=== PATIENT | female | born 1955 | race Caucasian/White ===

== ENCOUNTER 2017-06-23 04:51 | Inpatient (IN) | payer OTHER, BC ==
[2017-05-25 12:40] VITALS: BMI 40.0
--- NOTE | 2017-05-25 13:14 | PAT Medication Instructions ---
Service Date May 25, 2017. Current Home Medication List Atenolol (Atenolol), 25 MG PO BID Ergocalciferol (Vitamin D 18435 Unit), 50,000 UNIT PO SUN, WED Hydrocodone/Acetaminophen 5MG/325MG ([place] 5MG/325MG), 1 TABLET PO TID PRN for Pain Levothyroxine Sodium (Levothyroxine Sodium), 1 TAB PO QAM Multivitamin (Multivitamin), 1 TAB PO QAM Prednisone (Prednisone), 5 MG PO UD Medication Instructions For Your Scheduled Surgery - Contact your attendant children's institution for instructions for: Prednisone (Prednisone), 5 MG PO UD - Hold the following medications the morning of surgery: Multivitamin (Multivitamin), 1 TAB PO QAM Ergocalciferol (Vitamin D 50864 Unit), 50,000 UNIT PO SUN, WED - Take the following medications the morning of surgery with a sip of water: Atenolol (Atenolol), 25 MG PO BID Levothyroxine Sodium (Levothyroxine Sodium), 1 TAB PO QAM Hydrocodone/Acetaminophen 5MG/325MG ([place] 5MG/325MG), 1 TABLET PO TID PRN for Pain (if needed, can be taken up to four hours before surgery) - Take the following medications as scheduled the night before surgery: Atenolol (Atenolol), 25 MG PO BID Hydrocodone/Acetaminophen 5MG/325MG ([place] 5MG/325MG), 1 TABLET PO TID PRN for Pain (if needed) If you have any questions please call us at [phone] or [phone] or [phone]
--- NOTE | 2017-05-25 14:04 | DIAGNOSTIC IMAGING REPORT ---
CHEST 2 VIEWS ROUTINE HISTORY: 61 years-old Female pat preoperative exam. No acute chest complaints. COMPARISON: Portable chest radiograph 12/13/2014 TECHNIQUE: PA and lateral views of the chest FINDINGS: Cardiac silhouette is mildly enlarged, unchanged. No pneumothorax, pleural effusion, focal airspace consolidation or overt pulmonary edema. Degenerative changes are seen within the spine and shoulders. Fusion hardware of the lower cervical spine is noted. Cholecystectomy clips are seen. IMPRESSION: No acute cardiopulmonary process. The above report was generated using voice recognition software. It may contain grammatical, syntax or spelling errors. Electronically signed by: Anup Underwood M.D. 05/25/2017 2:03 PM Dictated Date/Time: 05/25/2017 2:02 PM
--- NOTE | 2017-05-25 14:12 | DIAGNOSTIC IMAGING REPORT ---
CERVICAL SPINE 3 VIEWS CLINICAL HISTORY: Preoperative examination. Rheumatoid arthritis. FINDINGS: Neutral, flexion, and extension lateral views of the cervical spine are obtained. No prior studies are available for comparison at the time of dictation. The skeletal structures are osteopenic. There is no radiographic evidence of fracture or subluxation on these lateral images. Vertebral body height and alignment are maintained throughout the cervical spine. No inducible bony subluxation is seen on the flexion/extension views. There are postoperative changes from anterior fusion seen at C5-C7. There is near complete bony incorporation at these levels. The atlantodental articulation appears maintained noting mild productive change. The spinolaminar line is preserved. The spinous processes appear intact. Only mild disc space narrowing is seen from C2 -C3 through C4 -C5. The prevertebral soft tissues are within normal limits. IMPRESSION: 1. No acute bony abnormality is seen involving the cervical spine on these lateral views. 2. No inducible bony subluxation is identified on the flexion/extension views. 3. Postoperative change as above. Dictated: 05/25/2017 2:03 PM Transcribed: 05/25/2017 2:12 PM [facility] Electronically signed by: Lázaro Erickson M.D. 05/25/2017 2:17 PM Dictated Date/Time: 05/25/2017 2:03 PM
[2017-05-25 14:32] LABS: BASO % 0.3 %; BASO ABS # 0.06 K/uL (0-0.2); EOS % 3.3 %; EOS ABS # 0.57 K/uL (0-0.5); HEMATOCRIT 40.8 % (37-47); HEMOGLOBIN 13.5 g/dL (12.0-16.0); IG# 0.17 K/uL (0.00-0.02); LYMPH % 19.9 %; LYMPH ABS # 3.48 K/uL (1.2-3.4); MEAN CELL VOLUME 88.1 fL (80-100); MEAN CORPUSCULAR HEMOGLOBIN 29.2 pg (25-34); MEAN CORPUSCULAR HGB CONC 33.1 g/dl (32-36); MEAN PLATELET VOLUME 9.9 fL (7.4-10.4); MONO % 7.2 %; MONO ABS # 1.27 K/uL (0.11-0.59); NEUT % 68.3 %; NEUT ABS # 11.97 K/uL (1.4-6.5); PLATELET COUNT 343 K/uL (130-400); RED CELL DISTRIBUTION WIDTH CV 14.8 % (11.5-14.5); RED CELL DISTRIBUTION WIDTH SD 47.5 fL (36.4-46.3); WHITE BLOOD COUNT 17.52 K/uL (4.8-10.8)
[2017-05-25 14:41] LABS: PTT PATIENT 28.5 SECONDS (21.0-31.0)
[2017-05-25 14:52] LABS: ALBUMIN 3.3 gm/dl (3.4-5.0); CALCIUM 8.8 mg/dl (8.5-10.1); CREATININE 0.72 mg/dl (0.60-1.20); POTASSIUM 3.9 mmol/L (3.5-5.1)
[2017-05-26 06:42] LABS: HEMOGLOBIN A1C 6.6 % (4.5-5.6)
--- NOTE | 2017-06-22 12:29 | HISTORY & PHYSICAL EXAMINATION ---
DATE OF ADMISSION: 06/23/2017 ADMISSION HISTORY AND PHYSICAL CHIEF COMPLAINT: Chronic left knee pain. HISTORY OF PRESENT ILLNESS: This is a 61-year-old female patient of Dr. Guerra'frances complaining of chronic left knee pain, longstanding, now progressively getting worse. The patient has been diagnosed with end-stage osteoarthritis per clinical and radiographic exams. The patient has failed conservative treatment including narcotic medications, anti-inflammatories and intraarticular injections. The patient has increased pain with weightbearing activities and her pain does interfere with her activities of daily living. PAST MEDICAL HISTORY: Hypertension, hypothyroidism, osteoarthritis, and obesity. SOCIAL HISTORY: Nonsmoker, nondrinker. PAST SURGICAL HISTORY: Cervical neck surgery, right foot surgery, cholecystectomy, right total knee replacement, hysterectomy, left ear surgery, appendectomy, colonoscopy and right-sided thyroid surgery. FAMILY HISTORY: Noncontributory. REVIEW OF SYSTEMS: The patient complains of chronic left knee pain and instability. Otherwise denies any shortness of breath, chest pain, nausea, vomiting or other joint complaints. MEDICATIONS: 1. Levothyroxine 125 mcg daily. 2. Vitamin D 50,000 international units twice a week. 3. Atenolol 25 mg b.i.d. 4. Busy as needed. 5. Prednisone 5 mg daily as needed. ALLERGIES: INCLUDE PENICILLIN AND MOBIC, AND SULFA. PHYSICAL EXAMINATION: GENERAL: Well-developed, well-nourished 61-year-old female in no acute distress. She is alert and oriented x3 and pleasant. HEENT: Normocephalic, atraumatic. Extraocular motions are intact. Pupils are equal and reactive to light. HEART: Regular rate and rhythm, no murmurs appreciated. LUNGS: Clear. ABDOMEN: Soft, nontender, bowel sounds present. EXTREMITIES: Left knee reveals a varus deformity. She has limited range of motion of 0-120 degrees. She has medial joint line tenderness. NEUROLOGIC: Neurovascularly, she is intact in her left lower extremity with 4/5 strength. DIAGNOSES: Left knee end-stage osteoarthritis, hypertension, hypothyroidism, osteoarthritis, and obesity. PLAN: The patient was advised of her diagnosis. Indications, risks, benefits, postop course have all been reviewed. The patient wishes to proceed with a left total knee arthroplasty. Necessary consent forms, preoperative testing and clearances will be obtained.
[2017-06-23] VITALS (9 sets, daily range): BP systolic 105–164; BP diastolic 62–84; PULSE 67–99; TEMP 36.5–36.6; O2SAT 94–97; Ht 162.6 cm; Wt 105.1 kg
[~2017-06-23] VITALS: Ht 162.6 cm; Wt 105.1 kg
[~2017-06-23 04:51] MED LIST: ERGO500037 PO; HYDR-5688 PO; LEVO125T5 PO; MULT-506 PO; PRED-301 PO; TNR25X PO
[2017-06-23] MEDS ORDERED: DEXAMETHASONE 4 MG TAB PO SCH (06:00)
[2017-06-23] MEDS ORDERED: LACTATED RINGER'S 1000ML 1,000 ML IV SCH (06:00)
[2017-06-23] MEDS ORDERED: ROPIVACAINE 5MG/ML 30 ML 150 MG, BUPIVACAINE 0.5% MPF INJ 30 ML, EpINEphrine HCL INJ 0.... INFIL SCH ×8 (06:00)
[2017-06-23] MEDS ORDERED: ACETAMINOPHEN 500 MG TAB PO SCH (06:00)
[2017-06-23] MEDS ORDERED: LACTATED RINGER'S 1000ML IV SCH (06:00)
[2017-06-23] MEDS ORDERED: GABAPENTIN 300 MG CAP PO SCH (06:00)
[2017-06-23] MEDS ORDERED: METOCLOPRAMIDE HCL 10 MG TAB PO SCH (06:00)
[2017-06-23] MEDS ORDERED: CeleBREX 200 MG CAP PO SCH (06:00)
[2017-06-23] MEDS ORDERED: FAMOTIDINE 20 MG TAB PO SCH (06:00)
[2017-06-23] MEDS ORDERED: LACTATED RINGER'S 500 ML IV SCH (06:00)
[2017-06-23] MEDS ORDERED: CEFAZOLIN 2000MG IV PUSH 10 ML IV SCH (06:00)
[2017-06-23] MEDS ORDERED: BUPIVACAINE 0.5 % 5 MG/1 ML PF 10ML VIAL ONE (06:25)
[2017-06-23] MEDS ORDERED: BUPIVACAINE 0.25% 30 ML VIAL ONE (06:25)
[2017-06-23] MEDS: TRANEXAMIC ACID INJ 1,000 MG in SYRINGE 0 ML IV SCH ×2 (06:30→06:40)
[2017-06-23] MEDS ORDERED: BACITRACIN 50000 UNIT VIAL ONE (06:31)
[2017-06-23] MEDS ORDERED: ORTHO JOINT ANESTHETIC ONE (06:31)
[2017-06-23] MEDS ORDERED: POVIDONE-IODINE OP SOLN 30 ML BTL ONE (06:31)
[2017-06-23] MEDS ORDERED: MIDAZOLAM HCL 1 MG/ML 2ML VIAL ONE (07:06)
[2017-06-23] MEDS ORDERED: ROPIVACAINE 0.5% 5 MG/ML 30 ML VIAL ONE (07:06)
--- NOTE | 2017-06-23 07:16 | History & Physical Bridge Note ---
H&P Re-Evaluation Bridge Note: I have examined the patient, reviewed the History & Physical and in the interval since the performance of the History & Physical I have noted the following changes of clinical significance: No changes noted
[2017-06-23] MEDS ORDERED: EpHEDrine SULFATE 50MG/5ML SYR ONE (08:07)
[2017-06-23] MEDS ORDERED: PROPOFOL IV EMULSION 10 MG/ML 20 ML VIAL IV ONE (08:07)
[2017-06-23] MEDS ORDERED: PHENYLEPHRINE 100MCG/ML 5ML SYR ONE (08:07)
[2017-06-23] MEDS ORDERED: ONDANSETRON INJ 2 MG/ML 2 ML VIAL IV PRN ×2 (08:15→09:30)
[2017-06-23] MEDS ORDERED: HYDROmorphone INJ 2 MG/ML SYR/VIAL IV PRN (08:15)
[2017-06-23] MEDS ORDERED: PHENYLEPHRINE 100MCG/ML 5ML SYR IV PRN (08:15)
[2017-06-23] MEDS ORDERED: ATROPINE SULFATE 0.1 MG/ML 5ML SYR IV PRN (08:15)
[2017-06-23] MEDS ORDERED: EpHEDrine SULFATE INJ 50 MG/ML AMP IV PRN (08:15)
--- NOTE | 2017-06-23 09:09 | [facility] Post Operative Brief Note ---
Immediate Operative Summary Operative Date Jun 23, 2017. Pre-Operative Diagnosis Left knee end-stage osteoarthritis Post-Operative Diagnosis same as pre-operative Procedure(s) Performed Left total knee arthroplasty-cemented Surgeon Dr. Chase Guerra Education Coordinator Surgeon(s) CYNTHIA Parada Estimated Blood Loss 20ml Findings grade 4 medial varus Specimens Permanent Specimen A: Left knee bone and tissue Drains 2 hemovac Anesthesia spinal adductor block and orthomix Complication(s) None Disposition Recovery Room / PACU
[2017-06-23] MEDS ORDERED: MAGNESIUM HYDROXIDE SUSP 30 ML UDC PO PRN (09:30)
[2017-06-23] MEDS ORDERED: MoRPHine SULFATE 2 MG/ML CARP IV PRN (09:30)
[2017-06-23] MEDS ORDERED: ZOLPIDEM TARTRATE 5 MG TAB PO PRN (09:30)
[2017-06-23] MEDS ORDERED: ACETAMINOPHEN 325 MG TAB PO PRN (09:30)
[2017-06-23] MEDS ORDERED: BISACODYL 10 MG SUPP PR PRN (09:30)
--- NOTE | 2017-06-23 09:55 | DIAGNOSTIC IMAGING REPORT ---
L KNEE 1 OR 2 VIEWS ROUTINE CLINICAL HISTORY: AP/LATERAL IN PACU LEFT KNEE COMPARISON: None. DISCUSSION: Anatomic alignment status post total left knee arthroplasty. Good contact between prosthetic and underlying bone. Expected soft tissue postoperative change. IMPRESSION: Anatomic alignment status post left knee total arthroplasty. The above report was generated using voice recognition software. It may contain grammatical, syntax or spelling errors. Electronically signed by: Roshan Sharp M.D. 06/23/2017 9:54 AM Dictated Date/Time: 06/23/2017 9:52 AM
[2017-06-23] MEDS: D5W AND 1/2NSS + 20MEQ KCL 1,000 ML IV SCH ×2 (10:30→21:06)
--- NOTE | 2017-06-23 10:31 | NUR ---
A:PATIENT RECEIVED IN ROOM 304 FROM RECOVERY ROOM,VSS,LUNGS CLEAR AND DIMINISHED,O2 AT 2L VIA NASAL CANNULA,IV FLUIDS INFUSING,LT KNEE YFN WRAP DRY AND INTACT,LT KNEE HEMOVAC PATENT AND DRAINING BLOODY DRAINAGE,WEAK BILATERAL PEDAL PULSES,GOOD CMS,RT EDMUNDO STOCKING AND SCDS ON, SEVERE NUMBNESS NOTED TO BLE,PATIENT INSTRUCTED COLORIST FORMULATOR HERBERT AND TO RING FOR ASSISTANCE,PHONE AND TRIFLOW USE,INSTRUCTED ON TKA EXERCISES
[2017-06-23] MEDS: ERGOCALCIFEROL 50,000 INTER.UNIT CAP PO SCH ×2 (11:00→12:10)
--- NOTE | 2017-06-23 11:17 | Anesthesiology Progress Note ---
Anesthesia Post Op Note Date & Time Jun 23, 2017 at 11:17 Vital Signs Pain Intensity: 0.0 Vital Signs Past 12 Hours Date Time Temp Pulse Resp B/P (MAP) Pulse Ox O2 Delivery O2 Flow Rate FiO2 06/23/17 11:07 73 16 107/63 (78) 94 Nasal Cannula 2.0 06/23/17 10:05 96 Nasal Cannula 2.0 06/23/17 10:05 36.5 78 18 114/83 (93) 96 Nasal Cannula 2.0 06/23/17 10:05 96 Nasal Cannula 2.0 06/23/17 09:50 36.6 92 20 121/60 99 Nasal Cannula 2 06/23/17 09:40 72 18 126/61 96 Nasal Cannula 2 06/23/17 09:30 74 18 108/63 95 Nasal Cannula 2 06/23/17 09:22 37.0 93 14 123/71 97 Nasal Cannula 2 06/23/17 05:36 36.6 67 20 164/84 97 Room Air Notes Mental Status: alert / awake / arousable, participated in evaluation Pt Amnestic to Procedure: Yes Nausea / Vomiting: adequately controlled Pain: adequately controlled Airway Patency, RR, SpO2: stable & adequate BP & HR: stable & adequate Hydration State: stable & adequate Anesthetic Complications: no major complications apparent
--- NOTE | 2017-06-23 12:28 | History and Physical ---
History & Physical Date & Time of Service: Jun 23, 2017 at 12:22 Chief Complaint: Left Knee Degenerative Joint Disease Primary Care Physician: Raffaele Jarquin M.D. History of Present Illness Source: patient 61 years old female with past medical history of hypertension, hypothyroidism, borderline diabetes and obesity. Presented to the hospital for an elective left total knee replacement after failing outpatient interpreted management. Procedure went uneventful. She currently feels good She was told by her primary care physician that she is borderline diabetic and there is no medications needed right now. She has a history of multiple thyroid nodules status post partial thyroidectomy , pathology showed no cancer but she had to be on thyroid replacement therapy She does not smoke or drink alcohol No family history of diabetes Social History Smoking Status: Never Smoker Allergies Coded Allergies: Nickel (Verified Allergy, Intermediate, REDNESS OF SKIN, SWELLING, ) Penicillins (Verified Allergy, Intermediate, HIVES, 06/17/17) Meloxicam (Verified Allergy, Unknown, UNKNOWN, 05/25/17) Oxycodone (Verified Adverse Reaction, Mild, ITCHING, 06/23/17) Home Medications Scheduled Atenolol (Atenolol), 25 MG PO BID Ergocalciferol (Vitamin D 84868 Unit), 50,000 UNIT PO SUN, WED Levothyroxine Sodium (Levothyroxine Sodium), 1 TAB PO QAM Scheduled PRN Hydrocodone/Acetaminophen 5MG/325MG ([place] 5MG/325MG), 1 TABLET PO TID PRN for Pain Review of Systems Constitutional: No fever, No chills, No sweats, No weight loss, No weakness, No fatigue, No problem reported Eyes: No worsening of vision, No eye pain, No redness, No discharge, No diplopia, No problem reported ENT: No hearing loss, No unusual epistaxis, No nasal symptoms, No sore throat, No tinnitus, No dental problems, No trouble swallowing, No problem reported Respiratory: No cough, No sputum, No wheezing, No shortness of breath, No dyspnea on exertion, No dyspnea at rest, No hemoptysis, No problem reported Cardiovascular: No chest pain, No orthopnea, No PND, No edema, No claudication , No palpitations, No problem reported Abdomen: No pain, No nausea, No vomiting, No diarrhea, No constipation, No GI bleeding, No problem reported Musculoskeletal: + joint pain Genitourinary - Female: No dysuria, No urinary frequency, No urinary urgency, No urinary incontinence, No urinary retention, No hematuria, No dysmenorrhea, No menorrhagia, No metrorrhagia, No rash, No vaginal bleeding, No vaginal discharge, No vaginal itching, No vulvodynia, No , No problem reported Neurologic: No memory loss, No paralysis, No weakness, No numbness/tingling, No vertigo, No balance problems, No problem reported Psychiatric: No depression symptoms, No anhedonism, No anxiety, No insomnia, No substance abuse, No problem reported Endocrine: No fatigue, No excessive thirst, No excessive urination, No problem reported Hematologic / Lymphatic: No abnormal bleeding/bruising, No clotting problems, No swollen lymph nodes, No night sweats, No problem reported Integumentary: No rash, No itch, No new/changing skin lesions, No color change , No bleeding, No problem reported Physical Exam Vital Signs Date Time Temp Pulse Resp B/P (MAP) Pulse Ox O2 Delivery O2 Flow Rate FiO2 06/23/17 12:05 80 16 128/69 (88) 97 Nasal Cannula 2.0 06/23/17 11:07 73 16 107/63 (78) 94 Nasal Cannula 2.0 06/23/17 10:35 91 18 105/67 (80) 06/23/17 10:05 96 Nasal Cannula 2.0 06/23/17 10:05 36.5 78 18 114/83 (93) 96 Nasal Cannula 2.0 06/23/17 10:05 96 Nasal Cannula 2.0 06/23/17 09:50 36.6 92 20 121/60 99 Nasal Cannula 2 06/23/17 09:40 72 18 126/61 96 Nasal Cannula 2 06/23/17 09:30 74 18 108/63 95 Nasal Cannula 2 06/23/17 09:22 37.0 93 14 123/71 97 Nasal Cannula 2 06/23/17 05:36 36.6 67 20 164/84 97 Room Air General Appearance: WD/WN, no apparent distress Head: normocephalic, atraumatic Eyes: normal inspection, EOMI ENT: normal ENT inspection, hearing grossly normal Neck: supple Respiratory/Chest: chest non-tender, lungs clear, normal breath sounds, no respiratory distress, no accessory muscle use Cardiovascular: regular rate, rhythm, no edema, no gallop, no JVD, no murmur Abdomen/GI: non tender, soft, no organomegaly Back: normal inspection Extremities/Musculoskelatal: normal inspection, + pertinent finding (left knee is wrapped, patient can wiggle her toes) Neurologic/Psych: stage set up worker II-XII nml as tested, no motor/sensory deficits, alert, normal mood/affect, normal reflexes, oriented x 3 Skin: normal color, warm/dry, no rash Impression Assessment and Plan 61 years old female with past medical history of hypertension, hypothyroidism, borderline diabetes and obesity status post elective left total knee replacement 06/24 Assessment Severe osteoarthritis is status post left TKA postoperative day #0 Hypertension Hypothyroidism Borderline diabetes on diet control Obesity Plan Status post orthopedic procedure, went uneventful full Patient tolerated procedure well with minimal blood loss Appears to be stable Continue outpatient medications Follow-up labs Ensure adequate oral/parenteral intake Pain management Physical therapy initiation as per primary orthopedic team DVT prophylaxis as per the choice of primary orthopedic team Advanced Directives Existing Living Will: No Existing Power of Databases Software Consultant: No VTE Prophylaxis VTE Risk Assessment Done? Y/N: Yes Risk Level: Moderate
--- NOTE | 2017-06-23 13:57 | NUR ---
Case Management- Met with patient in room. She reports she lives alone in a one story home with five steps to enter she is independent with adls using no assistive devices and still drives. She has a cane and walker at home. Per patient the first week her daughter and er two kids are going to be taking turns staying with her. She asks for referral for [facility]. for home health referral made. CM following
--- NOTE | 2017-06-23 15:55 | NUR ---
ID: PT A/O x 4. Rates pain 3/10 at this time. OOB to bedside commode dt retained numbness to left foot. will ambulate with walker. LR at 100ml/hr to change to D51/2 nss+20 K when OR bag of LR is empty. Diminished bases but triflows to 1750 on RA. Weak pedal pulses, numbness present in the left leg. Tolerates regular diet, last bm 06/22 per pt report. Voids in the bedside commode. YFN wrap clean dry and intact. Hemovac holding suction and draining bloody. Bed in low and locked position, call carl in reach, pt rings appropriately.
[2017-06-23] MEDS: HYDROCODONE/ACETAMIN 5/325MG TAB PO PRN ×2 (16:54→23:40)
[2017-06-23] MEDS ORDERED: VANCOMYCIN IV 1,500 MG in SODIUM CHLORIDE 0.9% 500ML 500 ML IV SCH (19:00)
[2017-06-23] MEDS: DOCUSATE SODIUM 100 MG CAP PO SCH (21:08)
[2017-06-23] MEDS: ASPIRIN 81 MG ECTAB PO SCH (21:08)
[2017-06-24] VITALS (8 sets, daily range): BP systolic 121–144; BP diastolic 68–81; PULSE 55–66; TEMP 36.4–36.8; O2SAT 96–99
[2017-06-24] MEDS: TRAMADOL HCL 50 MG TAB PO PRN ×4 (01:57→18:33)
[2017-06-24] MEDS: HYDROCODONE/ACETAMIN 5/325MG TAB PO PRN ×4 (04:38→20:34)
[2017-06-24] MEDS: LEVOTHYROXINE 125 MCG TAB PO SCH (05:39)
[2017-06-24 06:00] LABS: HEMATOCRIT 33.7 % (37-47); HEMOGLOBIN 11.1 g/dL (12.0-16.0); MEAN CELL VOLUME 86.2 fL (80-100); MEAN CORPUSCULAR HEMOGLOBIN 28.4 pg (25-34); MEAN CORPUSCULAR HGB CONC 32.9 g/dl (32-36); MEAN PLATELET VOLUME 9.9 fL (7.4-10.4); PLATELET COUNT 298 K/uL (130-400); RED CELL DISTRIBUTION WIDTH CV 14.1 % (11.5-14.5); RED CELL DISTRIBUTION WIDTH SD 44.2 fL (36.4-46.3); WHITE BLOOD COUNT 18.01 K/uL (4.8-10.8)
[2017-06-24 06:36] LABS: CALCIUM 8.3 mg/dl (8.5-10.1); CREATININE 0.67 mg/dl (0.60-1.20); POTASSIUM 4.1 mmol/L (3.5-5.1)
--- NOTE | 2017-06-24 07:58 | Orthopedic Progress Note ---
Orthopedic Progress Note Date of Service Jun 24, 2017. Subjective Post OP Day: 1 Reports: feeling well, pain controlled w PO medications, Denies: complaints, chest pain, SOB, light headedness, calf pain Objective calves soft nontender, N/V intact, capillary refill less than 2 sec., dressing C /D/I, A&O x3, toes mobile Date Time Temp Pulse Resp B/P (MAP) Pulse Ox O2 Delivery O2 Flow Rate FiO2 06/24/17 07:09 36.4 60 16 121/74 (90) 98 Room Air 06/24/17 03:52 36.8 65 16 126/68 (87) 97 Room Air 06/23/17 23:15 Room Air 06/23/17 23:07 36.5 67 16 119/62 (81) 96 Room Air 06/23/17 21:10 99 146/78 (100) 06/23/17 15:55 Room Air 06/23/17 15:05 36.6 95 18 130/73 (92) 95 Room Air 06/23/17 12:58 91 18 120/67 (84) 06/23/17 12:05 80 16 128/69 (88) 97 Nasal Cannula 2.0 06/23/17 11:07 73 16 107/63 (78) 94 Nasal Cannula 2.0 06/23/17 10:35 91 18 105/67 (80) 06/23/17 10:05 96 Nasal Cannula 2.0 06/23/17 10:05 36.5 78 18 114/83 (93) 96 Nasal Cannula 2.0 06/23/17 10:05 96 Nasal Cannula 2.0 06/23/17 09:50 36.6 92 20 121/60 99 Nasal Cannula 2 06/23/17 09:40 72 18 126/61 96 Nasal Cannula 2 06/23/17 09:30 74 18 108/63 95 Nasal Cannula 2 06/23/17 09:22 37.0 93 14 123/71 97 Nasal Cannula 2 Laboratory Results 24 Hours: Test 06/24/17 05:34 Hematocrit 33.7 % Hemoglobin 11.1 g/dL Assessment & Plan Assessment: POD #1, Left TKA Plan: PT/ OT DVT proph- ASA D/C planning- Home w HH As per medicine. Inhouse Planning Pain Management: [place], Morphine, PO Tylenol DVT Prophylaxis: TEDs, SCDs, ASA Discharge Planning Discharge Planning: home with home health Pain Management: [place], PO Tylenol DVT Prophylaxis: TEDs, ASA Therapy: Physical Therapy, Occupational Therapy
--- NOTE | 2017-06-24 08:06 | OPERATIVE REPORT ---
DATE OF OPERATION: 06/23/2017 INDICATION FOR PROCEDURE: The patient is a 61-year-old female who presents with left knee osteoarthritis. She had successful right knee replacement and now her left knee has had progressive osteoarthritis. She has primarily medial compartment OA with a varus knee. PREOPERATIVE DIAGNOSIS: End-stage osteoarthritis of the left knee. POSTOPERATIVE DIAGNOSIS: Same. PROCEDURE: Left total knee arthroplasty. SURGEON: Dr. Guerra. COMMERCIAL LINES ASSISTANT: Roshan Cruz PA-C. ANESTHESIA: Spinal adductor block and Orthomix. OPERATIVE PROCEDURE: The patient was taken to the operating room, anesthetized under spinal adductor nerve block anesthesia. She was placed supine on the operating room table. A foot roll was placed so we could flex the knee during the procedure as needed. Pneumatic tourniquet was placed on the left upper thigh. Left lower extremity was prepped and draped in usual sterile fashion. Exam demonstrated that she had a varus knee fairly good range of motion. She had moderate obesity. After the leg was sterilely prepped and draped, it was elevated, exsanguinated with Esmarch bandage. Pneumatic tourniquet was raised to 325 mmHg and later to 350 because of inadequacy of the tourniquet pressure. The incision was made anteriorly across the left knee. Skin was incised sharply. Subcutaneous flaps were elevated. Incision was made through the medial retinaculum extended up in the mid third of the quadriceps tendon and extended down to the medial tibial tubercle. Intraarticular findings demonstrated that she had significant DJD medial compartment [id number] with varus knee. She did have some tricompartmental osteophytes. The Lopez [employer] Nephew Journey 2.0 total knee arthroplasty system was used using [employer] MRI templating and her femur sized for a 5, tibia for a 4 component. To expose the knee the infrapatellar fat pad was resected. The lateral synovial bands were released. The cruciate ligaments were resected. The meniscal remnants were resected. The fat pad over the anterior femur just above the articular surface for placement of the component in that area was resected. The knee was flexed and retractors were placed and the custom femoral cutting block was pinned in position and the distal femoral cut was made. Then the 5-in-1 cutting block was placed and the anterior, posterior and chamfer cuts were made for the 5 femur. Then the knee was extended and a subperiosteal peel lateral release was performed around the patella. Patella width was measured and width was reproduced using a freehand cut technique and a 35 patellar button. The dome component was used. The 3 drill holes were made for the pegs. The excess lateral facet was beveled off to prevent any impingement. Then attention was taken back to the tibia which was subluxed anteriorly and the custom tibial cutting block was pinned in position and the proximal tibial cut was made. Then we assessed ligamentous balance in extension and flexion and did some releases around the medial side to help with the balance. These were medial and posterior medial releases. At this time, the tibia was then resubluxed and the 4 tibial trial was placed in position, externally rotated laterally with the tibial tubercle. The punch for the stem was used. Then the 5 femoral trial was inserted, centered and the notch cutting devices were used and the collet was placed and then we looked at the ligamentous balance again and we had to pie crust the MCL to get the appropriate balance. The 12 trial insert gave balanced ligaments through full range of motion, patella tracked centrally. Trials removed, the orthopedic anesthetic cocktail was injected per protocol. The knee was copiously irrigated with pulsatile lavage antibiotic solution with bacitracin. The final components were then cemented. Final components were the 5 Oxinium posterior stabilized Lopez [employer] Nephew Journey 2.0 left femoral component, 4 primary tibial baseplate, 12 mm high flex posterior stabilized poly insert and 35 patella. We let the cement cured, we used Betadine soak per protocol. Then after that was completed and the cement cured we copiously irrigated out the knee with pulsatile lavage antibiotic solution and bacitracin. Two drains were brought out laterally connected to a Hemovac. The quadriceps and medial retinaculum were closed with interrupted [id number] #1 Vicryl sutures. The knee was taken through full range of motion and repair was secure. Subcutaneous tissues were closed with interrupted 2-0 Vicryl sutures and then the skin was closed with a Zip line device due to nickel allergy. The sterile dressings were applied and an Evans wrap from the foot to thigh. Tourniquet was let down and the patient had good capillary refill to the extremity. The patient tolerated the procedure well. Roshan Cruz PA-C was my wheelchair van operator first responder. He was present through the entire procedure. He assisted in soft tissue retraction, instrument management and performed the fascial, subcutaneous and skin closure and will participate in some of the postoperative care of the patient. I attest to the content of the Intraoperative Record and any orders documented therein. Any exceptions are noted below. AMY
[2017-06-24] MEDS: D5W AND 1/2NSS + 20MEQ KCL 1,000 ML IV SCH (08:13)
[2017-06-24] MEDS: PANTOprazole SOD 40 MG TAB PO SCH (08:14)
--- NOTE | 2017-06-24 08:28 | Anesthesiology Progress Note ---
Anesthesia Post Op Note Date & Time Jun 24, 2017 at 08:28 Vital Signs Pain Intensity: 7.0 Vital Signs Past 12 Hours Date Time Temp Pulse Resp B/P (MAP) Pulse Ox O2 Delivery O2 Flow Rate FiO2 06/24/17 07:09 36.4 60 16 121/74 (90) 98 Room Air 06/24/17 03:52 36.8 65 16 126/68 (87) 97 Room Air 06/23/17 23:15 Room Air 06/23/17 23:07 36.5 67 16 119/62 (81) 96 Room Air 06/23/17 21:10 99 146/78 (100) Notes Mental Status: alert / awake / arousable, participated in evaluation Pt Amnestic to Procedure: Yes Nausea / Vomiting: adequately controlled Pain: adequately controlled Airway Patency, RR, SpO2: stable & adequate BP & HR: stable & adequate Hydration State: stable & adequate Neuraxial Anesthesia: sensory block resolved Anesthetic Complications: no major complications apparent
[2017-06-24] MEDS: MULTIVITAMIN TAB PO SCH (08:46)
[2017-06-24] MEDS: DOCUSATE SODIUM 100 MG CAP PO SCH ×2 (08:47→20:34)
[2017-06-24] MEDS: ASPIRIN 81 MG ECTAB PO SCH ×2 (08:47→20:34)
--- NOTE | 2017-06-24 12:34 | Hospitalist Progress Note ---
Hospitalist Progress Note Date of Service Jun 24, 2017. Subjective Pt evaluation today including: conversation w/ patient, conversation w/ family , physical exam, chart review, lab review, review of studies Pain: Moderate left knee pain PO Intake: Good Voiding: no voiding problems The patient was seen and examined this morning. Pt reports doing well overall, feeling somewhat sore afterwards. Patient is passing gas, she has not had a bowel movement. Pt anticipates discharge tomorrow. She reports having some mild left lower back pain/ hip pain started yesterday no radiation of pain/ numbness or tingling. Patient is using ice pack reports that this has not relieved the pain. No worse with ambulation or position. Will watch and see if resolves tomorrow. Discussion was held regarding A1c= 6.6 and diet and exercise. computer hardware developer consulted. Patient reports she was recently seen by her PCP last week, and that she was started on metformin 2 days but developed severe diarrhea from this. She reports her PCP is allowing her to do diet and lifestyle modification for the next 3 months with recheck A1C and then will determine if further diabetes control is necessary. Additional Comments: Constitutional: No fever, sweats or chills Eyes: No diplopia, no worsening or blurred vision ENT: normal hearing, no trouble swallowing Respiratory: No cough, sputum, dyspnea at rest or on exertion Cardiovascular: No chest pain, tightness or palpitations Abdomen: No pain, nausea, vomiting, diarrhea or constipation Musculoskeletal: + L knee pain, no calf pain or swelling Neurologic: No weakness, numbness/tingling, or balance problems Psychiatric: No anxiety or depression Skin: No rash or itch Objective Vital Signs Date Time Temp Pulse Resp B/P (MAP) Pulse Ox O2 Delivery O2 Flow Rate FiO2 06/24/17 11:11 36.4 57 18 144/81 (102) 99 Room Air 06/24/17 08:49 66 128/78 (95) 06/24/17 08:10 Room Air 06/24/17 07:09 36.4 60 16 121/74 (90) 98 Room Air 06/24/17 03:52 36.8 65 16 126/68 (87) 97 Room Air 06/23/17 23:15 Room Air 06/23/17 23:07 36.5 67 16 119/62 (81) 96 Room Air 06/23/17 21:10 99 146/78 (100) 06/23/17 15:55 Room Air 06/23/17 15:05 36.6 95 18 130/73 (92) 95 Room Air 06/23/17 12:58 91 18 120/67 (84) Physical Exam Notes: General: awake, alert, no apparent distress, morbidly obese Head: Normocephalic, atraumatic ENT: PERRL, EOMI, no pharyngeal exudate, mucous membranes moist Chest: Clear to auscultation, on room air, no adventitious breath sounds Cardiac: Regular rate and rhythm, no murmur, no JVD, normal peripheral pulses, good capillary refill Abdominal: NABS x 4 quadrants, soft, nontender to palpation, no rebound, guarding or tenderness Extremities: + LLE wrapped in YFN, no swelling of extremities. Normal inspection , no peripheral edema or erythema, calfs nontender to palpation. No point tenderness found with left hip pain. Psych: Normal mood and affect Neuro: AAO x 3, speech is clear, no peripheral sensory deficits Laboratory Results Last 24 Hours Test 06/24/17 05:34 White Blood Count 18.01 K/uL Red Blood Count 3.91 M/uL Hemoglobin 11.1 g/dL Hematocrit 33.7 % Mean Corpuscular Volume 86.2 fL Mean Corpuscular Hemoglobin 28.4 pg Mean Corpuscular Hemoglobin Concent 32.9 g/dl RDW Standard Deviation 44.2 fL RDW Coefficient of Variation 14.1 % Platelet Count 298 K/uL Mean Platelet Volume 9.9 fL Sodium Level 138 mmol/L Potassium Level 4.1 mmol/L Chloride Level 107 mmol/L Carbon Dioxide Level 22 mmol/L Anion Gap 9.0 mmol/L Blood Urea Nitrogen 17 mg/dl Creatinine 0.67 mg/dl Est Creatinine Clear Calc Drug Dose 105.6 ml/min Estimated GFR () 110.7 Estimated GFR (Non- 95.5 BUN/Creatinine Ratio 25.2 Random Glucose 199 mg/dl Calcium Level 8.3 mg/dl Hepatitis C Antibody Screen NEG Assessment and Plan 61 years old female with PMHx of hypertension, hypothyroidism, borderline diabetes and obesity. Presented to the hospital for an elective left total knee replacement after failing outpatient interpreted management. Severe osteoarthritis S/p L TKA - POD #1 - Pain management, DVT ppx and bowel regimen per primary team HTN - BP remains stable Hypothyroidism - Continue levothyroxine DM II - A1C- 6.6, glucose has been elevated with last POC check =199. - Diabetic diet ordered, will ask DM educator to see the patient - Patient trial metformin last week 2 days causing significant GI symptoms including diarrhea: Continue diet and lifestyle modification at this time. PCP aware and following per HPI Obesity - BMI 39.8 - Diet and exercise encouraged. CODE: FULL Disposition: From home, discharge per primary team. .For involving us in the care of Mrs. Jones, we do not hesitate to call with any questions or concerns
--- NOTE | 2017-06-24 13:07 | NUR ---
Left message with Carpentry Instructor, Alba, regarding diabetes education.
--- NOTE | 2017-06-24 16:08 | NUR ---
DIABETES: Pt seen on consult for DM education, no comments noted. BS & A1c slightly elevated on PATs last month. Pt working w/ PCP on 3 month trial for lifestyle changes to see if BS will normalize. 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 She states she & PCP have plan & she will f/u w/ her in 2 more months to see if BS improved & A1c < 6.5%. Pt also has meter at home & will use it to monitor BS prior to returning to PCP. Denies having any DM services in her area so will review DM packet for diet, monitoring, and exercise details. See DM Teaching record interventions. Addendum: 06/24/17 at 1614 by Alba Rodriguez RN Amended: Links added.
--- NOTE | 2017-06-24 16:37 | NUR ---
ID: Pt A&Ox4, all vitals WNL on room air. Pain is a 6/10, no prn pain meds due at this time. Ambulates with 1 assist and a walker. Voiding in the toilet. Saline lock WNL in the left hand. Tolerating a DM2 diet. YFN wrap and HV intact to left knee. D/C plans for home health tomorrow.
[2017-06-25] MEDS: TRAMADOL HCL 50 MG TAB PO PRN ×3 (00:41→12:12)
[2017-06-25] MEDS: HYDROCODONE/ACETAMIN 5/325MG TAB PO PRN ×3 (03:32→13:51)
[2017-06-25] MEDS: LEVOTHYROXINE 125 MCG TAB PO SCH (05:21)
[2017-06-25 05:46] LABS: HEMATOCRIT 35.5 % (37-47); HEMOGLOBIN 11.4 g/dL (12.0-16.0); MEAN CELL VOLUME 87.2 fL (80-100); MEAN CORPUSCULAR HGB CONC 32.1 g/dl (32-36); MEAN PLATELET VOLUME 9.7 fL (7.4-10.4); PLATELET COUNT 303 K/uL (130-400); RED CELL DISTRIBUTION WIDTH CV 14.5 % (11.5-14.5); WHITE BLOOD COUNT 14.14 K/uL (4.8-10.8)
[2017-06-25 06:24] LABS: CALCIUM 8.4 mg/dl (8.5-10.1); CREATININE 0.57 mg/dl (0.60-1.20); POTASSIUM 3.9 mmol/L (3.5-5.1)
--- NOTE | 2017-06-25 07:21 | Orthopedic Progress Note ---
Orthopedic Progress Note Date of Service Jun 25, 2017. Subjective Post OP Day: 2 Reports: feeling well, pain controlled w PO medications, Denies: complaints, chest pain, SOB, light headedness, calf pain Objective calves soft nontender, N/V intact, capillary refill less than 2 sec., incision C /D/I, A&O x3, toes mobile Zip line in tact. Date Time Temp Pulse Resp B/P (MAP) Pulse Ox O2 Delivery O2 Flow Rate FiO2 06/25/17 00:00 Room Air 06/24/17 22:57 36.6 60 16 139/74 (95) 97 Room Air 06/24/17 20:33 56 138/77 (97) 06/24/17 15:55 96 Room Air 06/24/17 14:47 36.4 55 18 134/80 (98) 96 Room Air 06/24/17 11:11 36.4 57 18 144/81 (102) 99 Room Air 06/24/17 08:49 66 128/78 (95) 06/24/17 08:10 Room Air Laboratory Results 24 Hours: Test 06/25/17 05:11 Hematocrit 35.5 % Hemoglobin 11.4 g/dL Assessment & Plan Assessment: POD 2, Left TKA Plan: PT/ OT DVT proph- ASA D/C planning- Home w HH today As per medicine. Inhouse Planning Pain Management: [place], Morphine, PO Tylenol DVT Prophylaxis: TEDs, SCDs, ASA Discharge Planning Discharge Planning: home with home health Pain Management: [facility], [place], PO Tylenol DVT Prophylaxis: TEDs, ASA Therapy: Physical Therapy, Occupational Therapy
[2017-06-25] MEDS ORDERED: ASPI-320 PO (07:23)
[2017-06-25] MEDS ORDERED: HYDR-5688 PO (07:23)
[2017-06-25] MEDS ORDERED: ULT50X PO (07:23)
--- NOTE | 2017-06-25 07:24 | Discharge Instructions ---
Discharge Instructions Date of Service Jun 25, 2017. Admission Reason for Admission: Left Knee Degenerative Joint Disease Discharge Discharge Diagnosis / Problem: Left TKA Discharge Goals Goal(s): Improve function Activity Recommendations Activity Limitations: as noted below . Instructions / Follow-Up Instructions / Follow-Up ACTIVITY RECOMMENDATIONS: SELF CARE INSTRUCTIONS AFTER TOTAL KNEE REPLACEMENT A. You may need to continue a physical therapy program after discharge from the hospital. There are several options available to you. Your doctor will assist you in selecting the best one for you. 1. An out-patient facility 2 to 3 times a week for therapy or home therapy. 2. Continue working on all exercises taught to you in the hospital. Your goals should be to increase bending of your knee to 90 degrees and beyond and to fully straighten your knee. B. You may progress at your own pace from walking with a walker or crutches to a cane; then to no assistive devices. C. Make walking a part of your daily routine. Be up as much as comfortable with rest periods throughout the day. Rest with leg elevation is very important. Use the ice wrap frequently for the first 3-4 weeks. D. There are no restrictions on activities. You may ride in a car, shop, participate in magistrate assistant and all social activities. E. Wear the long elastic stockings (EDMUNDO hose) 20 hours a day for 2 weeks after surgery. They can be removed several times a day for laundering and for a bath. F. You may shower, no tub baths until cleared by your doctor. SPECIAL CARE INSTRUCTIONS: VERY IMPORTANT TO READ AND REVIEW A. There are a few signs you need to watch for after you are home. Call [facility] if you notice any of the followin. Increased severe knee pain. Some pain is expected especially when you exercise. 2. Increased swelling in your leg or knee; pain or swelling of the calf muscle in either lower leg. 3. Any fluid drainage from the incision. 4. Shortness of breath or chest pain. B. Please call [facility] at if you have any concerns or questions about your operation or recovery. The doctor or his nurse will return your call promptly. C. You must take antibiotics before dental work, bladder, bowel or other surgery. Your doctor will provide you with a permanent care to carry describing this precaution. IMPORTANT: * REMEMBER TO TAKE ASPIRIN, 81 MG, TWICE DAILY FOR 4 WEEKS UNLESS OTHERWISE DIRECTED. THIS IS YOUR BLOOD THINNER. * HIGH RISK PATIENTS MAY BE PRESCRIBED A STRONGER BLOOD THINNER. THIS WILL BE PROVIDED AT DISCHARGE. * CALL IF INCREASED PAIN, REDNESS, DRAINAGE OR FEVER GREATER THAT 101. * WEAR EDMUNDO HOSE 20 HOURS PER DAY FOR 2 WEEKS. * YOU MAY HAVE A LARGE BAND-AID LIKE DRESSING (SILVERON). THIS WILL REMAIN ON YOUR INCISION FOR 7 DAYS, THEN CAN BE REMOVED. IF INCISION IS LEAKING THROUGH DRESSING, CALL THE OFFICE . FOLLOW UP VISIT: If appointment is not already scheduled: Please call [facility] to make a follow-up appointment for 2 weeks after your surgery at . Current Hospital Diet Patient's current hospital diet: Diabetes Type 2 Diet Discharge Diet Recommended Diet: Diabetes Type 2 Diet Procedures Procedures Performed: Left total knee arthroplasty-cemented Pending Studies Studies pending at discharge: no Laboratory Results Hemoglobin A1c Test 05/25/17 13:31 Range/Units Estimated Average Glucose 143 mg/dl Hemoglobin A1c 6.6 H 4.5-5.6 % Medical Emergencies . Who to Call and When: Medical Emergencies: If at any time you feel your situation is an emergency, please call 911 immediately. . Non-Emergent Contact Non-Emergency issues call your: Primary Care Provider . "Provider Documentation" section prepared by Roshan Cruz. . VTE Core Measure Inpt VTE Proph given/why not?: Other Anticoagulation (asa), T.E.D. Stockings, SCD's [place] Drug Monitoring Program Search Results: patient reviewed within database, no issues identified
[2017-06-25 07:26] VITALS: BP 151/89; PULSE 71; TEMP 36.4; O2SAT 94
[2017-06-25] MEDS: DOCUSATE SODIUM 100 MG CAP PO SCH (07:26)
[2017-06-25] MEDS: ASPIRIN 81 MG ECTAB PO SCH (07:26)
[2017-06-25] MEDS: MULTIVITAMIN TAB PO SCH (07:26)
[2017-06-25] MEDS: PANTOprazole SOD 40 MG TAB PO SCH (07:26)
[2017-06-25 08:04] VITALS: BP 151/89; PULSE 71; TEMP 36.4; O2SAT 94
--- NOTE | 2017-06-25 13:09 | NUR ---
Case Management: Discharge instructions faxed to [facility].
--- NOTE | 2017-07-11 15:02 | DISCHARGE SUMMARY ---
CHIEF COMPLAINT: Left knee pain. HISTORY OF PRESENT ILLNESS: This is a 62-year-old female patient of Dr. Guerra'frances complaining of chronic left knee pain, longstanding, now progressively getting worse. The patient has been diagnosed with end-stage osteoarthritis, per clinical and radiographic exams. The patient has failed conservative treatment and elected to proceed with a left total knee arthroplasty. PAST MEDICAL HISTORY: Hypertension, hypothyroidism, osteoarthritis, and obesity. POSTOPERATIVE COURSE: The patient underwent a left total knee replacement on 06/23/2017. She was followed closely with medical consultation, DVT prophylaxis in the form of aspirin, physical therapy and pain control. The patient did very well postoperatively and was discharged on postoperative day #2. PHYSICAL EXAMINATION ON DISCHARGE: ZipLine device was clean, dry and intact. There was no redness or drainage. She had no calf tenderness. Negative Homans sign. Neurologically and neurovascularly she is intact in her left lower extremity. DIAGNOSES: Status post left total knee arthroplasty with a history of hypertension, hypothyroidism, osteoarthritis, and obesity. PLAN: The patient was discharged home on postoperative day #2 with home health services. She will continue her preadmission medications with the addition of pain medications. She will continue aspirin twice daily for DVT prophylaxis and up as an outpatient as scheduled.
== END 2017-06-25 13:57 | disposition home health service (06) | DRG 470 ==
LOC: C.ACU 04:51 → C.3E 07:06 → ENRESERV 09:45
PROVIDERS: ADMIT Orthopaedic Surgery Sports Medicine; ATTEND Orthopaedic Surgery Sports Medicine
PROC: 0SRD0J9 Replacement of Left Knee Joint with Synthetic Substitute, Cemented, Open Approach (ICD-10-PCS; principal; 2017-06-23 07:00)
DX: M17.12 Unilateral primary osteoarthritis, left knee (principal); I10 Essential (primary) hypertension; E03.9 Hypothyroidism, unspecified; E66.9 Obesity, unspecified; E11.9 Type 2 diabetes mellitus without complications; Z79.52 Long term (current) use of systemic steroids; Z79.899 Other long term (current) drug therapy; Z68.39 Body mass index [BMI] 39.0-39.9, adult